=== PATIENT | male | born 1945 | race Caucasian/White ===

== ENCOUNTER 2022-02-13 11:15 | Emergency (ER) | payer MEDICARE, OTHER ==
[~2022-02-13 11:15] MED LIST: ASPIRIN CHEWABL81 MG PO; ASPIRIN EC81 MG PO; ATORVASTATIN CA10 MG PO; ELIQUIS2.5 MG PO; ESTER-C 500 MG1 EACH PO; METOPROLOL ER PO; PROTONIX20 MG PO; STATIN PO; TOPROL XL 25MG25 MG PO; ZOFRAN4 MG PO
[2022-02-13 12:25] LABS: BASOPHIL 0.8 % (0-2); EOSINOPHIL 0.7 % (0-7); HCT 44.9 % (42.0-52.0); HGB 14.8 g/dl (13.2-18.0); LYMPHOCYTE 18.9 % (15-48); MCV 90.9 fL (78.0-100.0); MPV 10.4 fL (6.0-9.5); NEUTROPHIL 70.2 % (41-80); NRBC 0; PLT 234 K/uL (150-400); RBC 4.94 M/uL (4.70-6.00); RDW 13.4 % (11.5-14.0)
[2022-02-13 12:37] LABS: INR 1.24 (0.9-1.2); PROTHROMBIN TIME 14.9 SECONDS (11.8-13.4); PTT 26.1 SECONDS (24.4-34.7)
[2022-02-13 13:03] LABS: ALBUMIN 3.3 g/dL (3.4-5.0); ALKALINE PHOSHATASE 94 U/L (46-116); ALT 28 U/L (16-63); AST 24 U/L (15-37); BILIRUBIN - TOTAL 0.4 mg/dL (0.2-1.0); BUN 28 mg/dL (7-18); BUN/CREAT RATIO (CALC) 27.2 RATIO; CHLORIDE 104 mmol/L (98-107); CO2 (BICARBONATE) 30 mmol/L (21-32); CREATININE 1.03 mg/dL (0.67-1.17); GLOBULIN (CALCULATION) 2.6 g/dL; GLUCOSE 108 mg/dL (74-106); POTASSIUM 3.9 mmol/L (3.5-5.1); TOTAL PROTEIN 5.9 g/dL (6.4-8.2)
[2022-02-13 13:04] LABS: C-REACTIVE PROTEIN < 0.20 mg/dL (<=0.90)
[2022-02-13] MEDS ORDERED: NORCO 5-325 TA1 EACH PO (15:55)
== END 2022-02-13 17:19 | disposition home or self-care (01) ==
LOC: FER 11:15
PROVIDERS: Emergency Medicine
DX: M25.061 Hemarthrosis, right knee (principal); I48.91 Unspecified atrial fibrillation; E78.5 Hyperlipidemia, unspecified; Z88.0 Allergy status to penicillin; Z79.01 Long term (current) use of anticoagulants; Z79.899 Other long term (current) drug therapy
CPT/HCPCS: 36415; 73564; 80053; 84145; 84550; 85025; 85610; 85730; 86140; 96374; 96375; 96376; J1170; J2405